=== PATIENT | male | born 1950 | race Caucasian/White ===

== ENCOUNTER 2019-07-27 08:55 | Outpatient (CLI) | payer MEDICARE, MEDICAID, SELFPAY | END 2019-07-27 08:56 | disposition home or self-care (01) | PROVIDERS: PCP Family Medicine; Visit Provider Family Medicine | DX: H90.6 Mixed conductive and sensorineural hearing loss, bilateral (principal) | CPT/HCPCS: 92557; 92567 ==

== ENCOUNTER 2019-08-11 08:37 | Outpatient (RCR) | payer MEDICAID, SELFPAY | END 2019-08-11 23:59 | disposition home or self-care (01) | LOC: ANHAUDIO 08:37 | PROVIDERS: PCP Family Medicine | DX: Z46.1 Encounter for fitting and adjustment of hearing aid (principal) | CPT/HCPCS: V5014 ==

== ENCOUNTER 2019-12-12 08:00 | Outpatient (RCR) | payer MEDICARE, MEDICAID, SELFPAY | END 2019-12-12 23:59 | disposition home or self-care (01) | LOC: ANHAUDIO 08:00 | PROVIDERS: PCP Family Medicine; Visit Provider Family Medicine | DX: Z46.1 Encounter for fitting and adjustment of hearing aid (principal) | CPT/HCPCS: 99199; V5241; V5257; V5264 ==

== ENCOUNTER 2021-03-01 09:30 | Outpatient (RCR) | payer MEDICARE, MEDICAID, SELFPAY | END 2021-03-01 23:59 | disposition home or self-care (01) | LOC: ANHAUDIO 09:30 | PROVIDERS: PCP Family Medicine; Visit Provider Family Medicine | DX: Z46.1 Encounter for fitting and adjustment of hearing aid (principal) | CPT/HCPCS: V5264 ==